=== PATIENT | female | born 1995 | race African-American/Black ===

== ENCOUNTER 2019-02-24 21:20 | Emergency (ER) | payer OTHER ==
[2019-02-24 21:32] VITALS: BP 127/64; PULSE 80; TEMP 98.1; BMI 33.3
[2019-02-24] MEDS ORDERED: predniSONE 20 MG TABLET (UD) PO ONE (21:46)
[2019-02-24] MEDS ORDERED: diphenhydrAMINE HCL 25 MG CAPSULE (FP) PO ONE ×2 (21:47→21:52)
[2019-02-24] MEDS ORDERED: predniSONE 20 MG TABLET (UD) ONE (21:48)
--- NOTE | 2019-02-24 21:55 | PDOC ---
History of Present Illness - General Chief Complaint: Allergic Reaction Stated Complaint: ALLERGIC REACTION Time Seen by Provider: 02/24/19 21:39 History Source: Patient - History of Present Illness Timing/Duration: reports: this afternoon Severity: Yes: moderate Location: reports: generalized Respiratory Risk Factors: reports: no cause identified Past History - Past Medical History Allergies/Adverse Reactions: Allergies Allergy/AdvReac Type Severity Reaction Status Date / Time nut - unspecified Allergy Verified 02/24/19 21:33 peanut Allergy Verified 02/24/19 21:33 Home Medications: Ambulatory Orders Diphenhydramine HCl [Benadryl -] 25 mg PO Q6H #28 capsule 02/24/19 Famotidine [Pepcid] 20 mg PO DAILY #7 tablet 02/24/19 Loratadine [Claritin] 10 mg PO DAILY #7 tablet 02/24/19 Prednisone [Deltasone] 40 mg PO DAILY #8 tablet 02/24/19 Asthma: Yes COPD: No - Psycho Social/Smoking Cessation Hx Smoking History: Never smoked Review of Systems - Review of Systems HEENTM: No: Throat Swelling, Mouth Swelling Respiratory: No: Cough, Shortness of Breath, Stridor, Wheezing Integumentary: Yes: Pruritus, Rash *Physical Exam - Vital Signs Last Vital Signs Temp Pulse Resp BP Pulse Ox 98.1 F 80 19 127/64 100 02/24/19 21:28 02/24/19 21:28 02/24/19 21:28 02/24/19 21:28 02/24/19 21:28 - Physical Exam General Appearance: Yes: Appropriately Dressed. No: Apparent Distress HEENT: positive: Normal Voice Neck: positive: Supple Respiratory/Chest: positive: Lungs Clear, Normal Breath Sounds. negative: Respiratory Distress, Stridor Cardiovascular: positive: Regular Rate, S1, S2 Musculoskeletal: negative: Normal Inspection Integumentary: positive: Dry, Warm, Hives (to face, torso and upper exts) Neurologic: positive: Fully Oriented, Alert, Normal Mood/Affect Medical Decision Making - Medical Decision Making 02/24/19 21:51 23 yo F, h/o asthma, only allergy is to nuts, here w/ generalized pruritic rash that started today while at work at [employer]. 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 No sob or tongue/lip swelling at this time. States her rxn to nuts in the past was trash. No h/o anaphylaxis see exam Hives Unclear etiology Symptomatic tx in ED Dc w/ same, to return as needed 11 Discharge - Discharge Information Problems reviewed: Yes Clinical Impression/Diagnosis: Hives Condition: Stable Disposition: HOME - Additional Discharge Information Prescriptions: Diphenhydramine HCl [Benadryl -] 25 mg PO Q6H #28 capsule Famotidine [Pepcid] 20 mg PO DAILY #7 tablet Prednisone [Deltasone] 40 mg PO DAILY #8 tablet - Follow up/Referral - Patient Discharge Instructions Patient Printed Discharge Instructions: DI for General Allergic Reactions, DI for Hives Additional Instructions: Take medications as directed and return to ER if symptoms worsen - Post Discharge Activity Work/Back to School Note: Back to Work
== END 2019-02-24 21:57 | disposition home or self-care (01) ==
LOC: JERFT 21:20
DX: L50.8 Other urticaria (principal); Z91.010 Allergy to peanuts
CPT/HCPCS: 99281-25

== ENCOUNTER 2019-04-20 13:32 | Emergency (ER) | payer OTHER ==
[2019-04-20 13:39] VITALS: TEMP 98; BMI 38.2
[2019-04-20] MEDS ORDERED: IBUPROFEN 600 MG TABLET (FP) PO ONE ×2 (14:26→14:28)
--- NOTE | 2019-04-20 14:26 | PDOC ---
History of Present Illness - General Chief Complaint: Chest Pain Stated Complaint: CHEST PAIN Time Seen by Provider: 04/20/19 14:04 History Source: Patient Exam Limitations: No Limitations - History of Present Illness Initial Comments: 04/20/19 14:26 HPI 23 YOF with h/ asthma presenting with right sided chest pain since last night 1230AM, worse with arm motion and movement, twisting motions. this morning she went to work and continued her usual activity, which exacerbated her upper back and chest wall pain. denies trauma. no falls. no heavy lifting or strenuous activity, but pt states she does do physical activity and pushing cards with her job. Denies fever, chills, syncope, SOB, palpitation, heartburn, dizziness, weakness , N, V, D, abdominal pain, bladder and bowel problems, focal weakness/ paresthesias, leg swelling/pain, rash. No sick contacts or travel. No new changes in medications. No suspicious food intake no recent immobilization or procedures. denies , currently on period and regular; uses OCP for control. Allergies: peanuts Past Medical History/PSH: as above Social history: Lives with family. No tobacco, ETOH or drug use. no vaping Meds: none Family history: no family history of sudden deaths, ACS, VTE/PE. Review of systems Constitutional: no fevers or chills. No weakness HEENT: no headache or dizziness. No congestion. No visual/hearing disturbances. CVS: no syncope. no palpitations. +chest pain. Resp: no sob. No cough. Gastrointestinal: no abdominal pain, nausea, vomiting, diarrhea. Genitourinary: no urinary sx, hematuria. MUSCULOSKELETAL: No joint pain and swelling. No neck or back pain. SKIN: no redness or skin changes, no discharge, no rash. No wounds. Hematologic: no easy bruising/bleeding. NEUROLOGIC: No headache, dizziness, LOC or altered mental status. No weakness, numbness or tingling. Psych: no anxiety or depression Allergic/Immunologic: no allergies All other systems reviewed and negative, or as documented in HPI. Physical exam General: Well appearing, awake and alert, NAD. HEENT: NCAT, PERRL, EOMI, clear conjunctiva, anicteric, moist mucus membranes, clear oropharynx, no oral lesions.. Neck: neck supple, FROM Resp: CTAB, normal and even respirations, no respiratory distress CVS: RRR, no murmurs, 2+ peripheral pulses throughout, no peripheral edema Chest: +right anterior chest wall and right lateral thoracic back/rhomboid TTP. reproducible. Abdomen: soft, NTND, no rebound or guarding. Back: nontender, normal inspection and ROM MSK: no edema, SOUZA x4, ROM intact. No clubbing or cyanosis. normal bulk and tone. Extremities: no calf tenderness, no swelling. Neuro: alert, oriented appropriately; no focal neurologic deficits Psych: Calm and cooperative Skin: warm and well perfused, cap refill <2 sec, normal color, no rash or skin discoloration. 04/20/19 14:28 04/20/19 15:13 Past History - Past Medical History Allergies/Adverse Reactions: Allergies Allergy/AdvReac Type Severity Reaction Status Date / Time nut - unspecified Allergy Verified 04/20/19 13:39 peanut Allergy Verified 04/20/19 13:39 Asthma: Yes COPD: No - Psycho Social/Smoking Cessation Hx Smoking History: Never smoked *Physical Exam - Vital Signs Last Vital Signs Temp Pulse Resp BP Pulse Ox 98 F 79 18 135/73 100 04/20/19 13:35 04/20/19 13:35 04/20/19 13:35 04/20/19 13:35 04/20/19 13:35 Medical Decision Making - Medical Decision Making 04/20/19 14:30 Vital Signs Temp Pulse Resp BP Pulse Ox 98 F 79 18 135/73 100 04/20/19 13:35 04/20/19 13:35 04/20/19 13:35 04/20/19 13:35 04/20/19 13:35 vs reviewed wnl No evidence of ACS, pericarditis, myocarditis, pulmonary embolism, pneumothorax , pneumonia, Zoster, or esophageal perforation. Historically not abrupt in onset , tearing or ripping, pulses symmetric, no evidence of aortic dissection. Considered but clinically doubt based on HPI and PE: Low suspicion for pulmonary embolism or dissection. pt uses ocp so cannot perc out, low risk well' s score of zero (No tachycardia no hypoxia, no signs and symptoms suggestive of DVT/PE, no immobilization or surgery recently and no prior history of VTE, no hemoptysis or malignancy). unlikely ACS or cardiac, as symptoms are atypica, on right chest and reproducible. cxr clear, no e/o ptx, effusion, mass or infection/opacity. EKG normal sinus rhythm at 65 bpm, no interval abnormalities, narrow QRS, ST and T wave segments and morphology normal. Nonspecific T wave abnormalities, no prior pt given ibuprofen, with clinical improvement. +reproducible on chest wall and right thoracic back, so likely to be msk/costochondritis.. no sob, no syncope, neuro intact no s/s infection. well appearing otherwise. no e/o asthma exacerbation. no respiratory sx to suggest flu/infection. work note provided, avoid triggers or strenuous activity. Pt to be discharged in stable condition. Patient made aware of clinical impression, treatment recommendations and disposition plan, return precautions discussed (including but not limited to new or persistent/worsening symptoms, pain, fevers, or signs of infection, chest pain, respiratory distress, inability to tolerate oral intake, dehydration, syncope, or neurologic changes) . Follow up with PMD and/or specialist as recommended, follow up information provided, take medications as instructed for duration of time. continue with supportive care, avoid triggers and precipitants. All questions answered to patient's satisfaction and expressed understanding and comfort with this. At the time of discharge, the patient is alert, clinically improved, tolerating po and verbalizes understanding of instructions, satisfied with the care received and felt comfortable with the plan. Patient does not suffer from an acute life- threatening medical condition at this time and is safe for outpatient follow- up. 04/20/19 15:15 04/20/19 15:21 Discharge - Discharge Information Problems reviewed: Yes Clinical Impression/Diagnosis: Right-sided chest pain Condition: Good Disposition: HOME - Admission No - Follow up/Referral Referrals: [facility] [place] [facility] [Provider Group] [facility] [Provider Group] - Patient Discharge Instructions Patient Printed Discharge Instructions: DI for Atypical Chest Pain Additional Instructions: 1) Please follow-up with your primary care doctor in the next 1-2 days. Please call tomorrow for for any urgent issues. you were evaluated for chest pain. this could be reproducible or musculoskeletal , so you can take tylenol and/or motrin as needed for the chest wall pain 2) You were given a copy of the tests performed today. Please bring the results with you and review them with your primary care doctor. Your imaging results were normal including your chest x ray 3) If you have any worsening of symptoms or any other concerns please return to the ED immediately. Return if worsening symptoms including fevers, headache, vomiting, visual or hearing disturbances, abdominal pain, chest pain, shortness of breath, syncope, dehydration, inability to take things by mouth/vomiting, altered mental status, or worsening concerning symptoms. 4) Please continue taking your home medications as directed. Stay well hydrated and rest adequately. Make an appointment. If you cannot follow-up with your primary care doctor please return to the ED - Post Discharge Activity Work/Back to School Note: Back to Work
--- NOTE | 2019-04-20 14:40 | EKG ---
Test Reason : Blood Pressure : / mmHG Vent. Rate : 065 BPM Atrial Rate : 065 BPM P-R Int : 156 ms QRS Dur : 068 ms QT Int : 396 ms P-R-T Axes : 055 -01 -02 degrees QTc Int : 411 ms NORMAL SINUS RHYTHM WITH SINUS ARRHYTHMIA POSSIBLE LEFT ATRIAL ENLARGEMENT LOW VOLTAGE QRS CANNOT RULE OUT ANTERIOR INFARCT , AGE UNDETERMINED ABNORMAL ECG NO PREVIOUS ECGS AVAILABLE Confirmed by MD ANGELES, MONCHO ([id number]) on 04/20/2019 2:40:17 PM Referred By: Confirmed By:MONCHO REYNOSO MD
[2019-04-20 15:38] VITALS: BP 120/74; PULSE 76
== END 2019-04-20 15:34 | disposition home or self-care (01) ==
LOC: JER 13:32
DX: R07.9 Chest pain, unspecified (principal); Z91.010 Allergy to peanuts
CPT/HCPCS: 71046-TC-FY; 93005; 93010; 99282-25